=== PATIENT | female | born 1955 | race Two or more races ===

== ENCOUNTER 2020-04-28 13:08 | Outpatient (CLI) | payer MEDICARE ==
[~2020-04-28] VITALS: Ht 160 cm; Wt 76.7 kg
--- NOTE | 2020-04-28 18:00 | Consultation ---
DATE OF CONSULTATION: 04/28/2020 CHIEF COMPLAINT: History of colonic polyps. HISTORY OF PRESENT ILLNESS: This is a 64-year-old female with past medical history of colonic polyps 3 of them. Apparently colonoscopy was not clean so the patient was referred for repeat colonoscopy. PAST MEDICAL HISTORY: 1. Colonic polyps. 2. Prediabetes. 3. Hypertension. 4. Brain tumor, benign. PAST SURGICAL HISTORY: Hysterectomy. MEDICATIONS: Lisinopril. ALLERGIES: No known drug allergies. FAMILY HISTORY: Noncontributory. SOCIAL HISTORY: The patient denies any tobacco, alcohol, drug abuse. REVIEW OF SYSTEMS: A 10-point review of systems was performed and was negative. PHYSICAL EXAMINATION: GENERAL: A well-developed female. VITAL SIGNS: Temperature 97.6. HEENT: Normocephalic and atraumatic. Sclerae are anicteric. NECK: Supple. No evidence of any lymphadenopathy. CARDIOVASCULAR: Regular rate and rhythm. Plus S1, S2 LUNGS: Clear to auscultation bilaterally. ABDOMEN: Positive bowel sounds. Soft and nontender. No rebound. No guarding. No peritoneal sign. EXTREMITIES: No cyanosis. No clubbing. No edema. ASSESSMENT: This is a 64-year-old female with history of colonic polyp, poor colonic prep, was recommended to have a repeat colonoscopy now at this time. The patient was given instruction for colonoscopy. Risks and benefits of the procedure were explained to her. Prep was explained to her. We will schedule her for colonoscopy when authorization is obtained. Orlin Salguero M.D. DR: Ralph JOB#: [id number] CC:
[2020-04-29] MEDS ORDERED: METFORMIN HCL500 M1 ORAL (10:21)
[2020-04-29] MEDS ORDERED: LISINOPRIL10 MG ORAL (10:21)
[2020-04-29] MEDS ORDERED: CARBAMAZEPINE200 M1 ORAL ×2 (10:21→10:25)
[2020-04-29] MEDS ORDERED: CARBAMAZEPINE400 M1 PO ×2 (10:25)
== END 2020-04-28 15:18 | disposition home or self-care (01) ==
LOC: PAN 13:08
DX: I10 Essential (primary) hypertension (principal); Z86.010 Personal history of colon polyps; Z90.710 Acquired absence of both cervix and uterus; Z79.899 Other long term (current) drug therapy; R73.03 Prediabetes
CPT/HCPCS: G0463